=== PATIENT | female | born 1935 | race Caucasian/White ===

== ENCOUNTER 2024-04-17 14:09 | Emergency (ER) | payer OTHER, MEDICAID ==
[~2024-04-17] VITALS: Ht 154.9 cm; Wt 57.6 kg
[2024-04-17 14:26] VITALS: BP_SYST 126; PULSE 84; RESP 17; TEMP 97.7; O2SAT 97
[2024-04-17 15:27] LABS: BASOPHILS # (AUTO) 0.1 K/uL (0.0-0.2); BASOPHILS % (AUTO) 0.8 % (0.0-2.0); EOSINOPHILS # (AUTO) 0.3 K/uL (0.0-0.4); EOSINOPHILS % (AUTO) 3.4 % (0.0-4.0); HEMATOCRIT 36.3 % (36-48); HEMOGLOBIN 11.9 g/dL (12.0-16.0); LYMPHOCYTES # (AUTO) 1.5 K/uL (1.0-5.5); LYMPHOCYTES % (AUTO) 19.9 % (20.5-51.5); MEAN CORPUSCULAR HEMOGLOBIN 28 pg (27-31); MEAN CORPUSCULAR HGB CONC 33 % (32-36); MEAN CORPUSCULAR VOLUME 84 fL (79.0-98.0); MONOCYTES # (AUTO) 0.6 K/uL (0.0-1.0); NEUTROPHILS # (AUTO) 5.1 K/uL (1.8-7.7); NEUTROPHILS % (AUTO) 67.9 % (40.0-70.0); PLATELET COUNT (AUTO) 318 K/uL (130-430); RED BLOOD CELL COUNT(AUTO) 4.33 MIL/uL (4.2-6.2); RED CELL DISTRIBUTION WIDTH 13.6 % (9.0-15.0); WHITE BLOOD COUNT (AUTO) 7.5 K/uL (4.8-10.8)
[2024-04-17 15:31] LABS: PROTHROMBIN TIME 10.2 SECS (9.5-12.5)
[2024-04-17 15:42] LABS: ALANINE AMINOTRANSFERASE 21 U/L (12-78); ALBUMIN 3.2 g/dL (3.4-4.8); ANION GAP 9 (5-15); ASPARTATE AMINOTRANSFERASE 16 U/L (10-37); BILIRUBIN,DIRECT 0.1 mg/dL (0.0-0.3); CALCIUM 8.7 mg/dL (8.4-11.0); CARBON DIOXIDE 28 mmol/L (23-29); CHLORIDE 104 mmol/L (98-107); CREATININE 0.63 mg/dL (0.55-1.30); GLUCOSE 152 mg/dL (74-106); LIPASE 25 U/L (16-77); POTASSIUM 3.9 mmol/L (3.5-5.1); SODIUM SERUM 141 mmol/L (136-145); TOTAL BILIRUBIN 0.3 mg/dL (0.0-1.0); TOTAL PROTEIN, SERUM 6.3 g/dL (6.4-8.3); UREA NITROGEN, BLOOD 18 mg/dL (8-21)
[2024-04-17] MEDS ORDERED: POLY17PO4 PO (16:44)
[2024-04-17] MEDS ORDERED: DOCU-144 PO (16:44)
[2024-04-17 17:59] VITALS: BP_SYST 122; PULSE 72; RESP 16; TEMP 98.2; O2SAT 98
== END 2024-04-17 17:59 | disposition home or self-care (01) ==
LOC: SED 14:09
DX: K59.00 Constipation, unspecified (principal); K62.5 Hemorrhage of anus and rectum; Z79.899 Other long term (current) drug therapy
CPT/HCPCS: 36415; 80048; 80076; 83690; 85025; 85610; 99284